=== PATIENT | male | born 1965 | race Caucasian/White ===

== ENCOUNTER 2017-04-09 21:13 | Emergency (ER) | payer OTHER ==
[~2017-04-09] VITALS: Ht 182.9 cm; Wt 86.0 kg
[2017-04-09 21:20] VITALS: TEMP 36.6; Ht 182.9 cm; Wt 86.0 kg
--- NOTE | 2017-04-09 21:46 | EMERGENCY ROOM VISIT NOTE ---
History Report prepared by Johanne: Palmira Gonzalez Under the Supervision of: Dr. Karyna Mcghee M.D. First contact with patient: 21:25 Chief Complaint: MENTAL HEALTH EVALUATION Stated Complaint: MENTAL HEALTH EVAL History of Present Illness The patient is a 52 year old male who presents to the Emergency Room for a mental health evaluation after a statement that he made today. The patient states that he has a opiate drug and alcohol addiction and had his last drink yesterday afternoon at 1pm. He reports that he was at [facility] for his first time at rehab. He explains that he was sitting around today with 9 other people at rehab and they were discussing the amount of times that they had been to rehab. The patient states that all of the other people had been to rehab multiple times and he was not happy that this might be something he would have to do again. He reports that he want's to go to rehab one time and move on and "live a happy life with my and grandson". The patient notes that he said to the group "If I have to do this more than once, I would rather be .". He states that one of the staff members asked how he would do it and he said that he would hang himself but he notes that he said this to get her to stop bothering him. He notes that he did not mean anything by the statements and wants to fix his addiction and not kill himself. The patient reports that he has never contemplated suicide has a "nice family and with too much to lose." He reports that he also has no psychiatric or medical history. Source of History: patient Onset: today Position: other (mental health) Quality: other (suicidal statements) Timing: other (episode) Note: Denies suicidal ideation. Review of Systems See HPI for pertinent positives & negatives. A total of 10 systems reviewed and were otherwise negative. Past Medical & Surgical Medical Problems: (1) No Known Active Medical Problems Family History No pertinent family history stated. Social History Smoking Status: Current Every Day Smoker Alcohol Use: heavy Drug Use: other (opiates) Marital Status: Housing Status: lives with family Occupation Status: employed Current/Historical Medications Scheduled Diazepam (Valium), 10 MG PO TID Diazepam (Valium), 10 MG PO BID Diazepam (Valium), 10 MG PO HS Diazepam (Valium), 5-10 MG PO PRN Folic Acid (Folvite), 1 MG PO DAILY Levetiracetam (Keppra), 500 MG PO TID Levetiracetam (Keppra), 500 MG PO BID Loperamide Hcl (Imodium), 4 MG PO DAILY/PRN/UD Loperamide Hcl (Imodium), 2 MG PO PRN/DAILY/UD Multivitamin (Multivitamin), 1 TAB PO DAILY Naloxone HCl (Naloxone HCl), 0.4 MG IM PRN Thiamine Hcl (Vitamin B-1), 100 MG PO DAILY Scheduled PRN Acetaminophen (Tylenol), 650 MG PO QID PRN for Pain or Fever Aluminum/Magnesium/Simeth (Maalox Max Susp), 30 ML PO TID PRN for GI Upset Clonidine Hcl (Catapres), 0.1 MG PO BID PRN for UNDECIDED Doxepin Hcl (Sinequan), 50 MG PO QPM PRN for Insomnia Hydroxyzine Pamoate (Vistaril), 50 MG PO TID PRN for Anxiety Ibuprofen (Motrin), 600 MG PO Q6H PRN for Pain Magnesium Hydroxide (Milk Of Magnesia), 30 ML PO DAILY PRN for Constipation Melatonin (Melatonin Maximum Strengt), 5 MG PO HS PRN for Insomnia Promethazine Hcl (Phenergan), 25 MG PO QID PRN for Nausea Allergies Coded Allergies: No Known Allergies (Unverified , 04/09/17) Physical Exam Vital Signs Date Time Temp Pulse Resp B/P (MAP) Pulse Ox O2 Delivery O2 Flow Rate FiO2 04/09/17 23:12 87 18 121/84 97 Room Air 04/09/17 21:20 36.6 81 18 119/80 96 Room Air Physical Exam Vital signs reviewed. General: Well-appearing male, in no significant distress. HEENT: No scleral icterus, PERRLA, neck supple. Atraumatic. Cardiovascular: Regular rate and rhythm, no extra sounds. Pulmonary: Clear to auscultation bilaterally, normal work of breathing. Abdomen: Soft, nontender, nondistended, positive bowel sounds. Musculoskeletal: Atraumatic, no peripheral edema. Neurologic: Patient awake alert and oriented x 3 Skin: Warm, dry, no rash Psych: Denies suicidal or homicidal ideation. Medical Decision & Procedures Laboratory Results 04/09/17 21:47 Red Blood Count 4.10, Mean Corpuscular Volume 93.9, Mean Corpuscular Hemoglobin 33.2, Mean Corpuscular Hemoglobin Concent 35.3, Mean Platelet Volume 9.1, Neutrophils (%) (Auto) 73.0, Lymphocytes (%) (Auto) 17.9, Monocytes (%) (Auto) 7.1, Eosinophils (%) (Auto) 1.6, Basophils (%) (Auto) 0.2, Neutrophils # (Auto) 7.14, Lymphocytes # (Auto) 1.75, Monocytes # (Auto) 0.69, Eosinophils # (Auto) 0.16, Basophils # (Auto) 0.02 04/09/17 21:47 Test 04/09/17 21:47 04/10/17 01:00 White Blood Count 9.78 K/uL (4.8-10.8) Red Blood Count 4.10 M/uL (4.7-6.1) Hemoglobin 13.6 g/dL (14.0-18.0) Hematocrit 38.5 % (42-52) Mean Corpuscular Volume 93.9 fL (80-100) Mean Corpuscular Hemoglobin 33.2 pg (25-34) Mean Corpuscular Hemoglobin Concent 35.3 g/dl (32-36) Platelet Count 176 K/uL (130-400) Mean Platelet Volume 9.1 fL (7.4-10.4) Neutrophils (%) (Auto) 73.0 % Lymphocytes (%) (Auto) 17.9 % Monocytes (%) (Auto) 7.1 % Eosinophils (%) (Auto) 1.6 % Basophils (%) (Auto) 0.2 % Neutrophils # (Auto) 7.14 K/uL (1.4-6.5) Lymphocytes # (Auto) 1.75 K/uL (1.2-3.4) Monocytes # (Auto) 0.69 K/uL (0.11-0.59) Eosinophils # (Auto) 0.16 K/uL (0-0.5) Basophils # (Auto) 0.02 K/uL (0-0.2) RDW Standard Deviation 44.1 fL (36.4-46.3) RDW Coefficient of Variation 12.9 % (11.5-14.5) Immature Granulocyte % (Auto) 0.2 % Immature Granulocyte # (Auto) 0.02 K/uL (0.00-0.02) Prothrombin Time 10.0 SECONDS (9.0-12.0) Prothromb Time International Ratio 0.9 (0.9-1.1) Activated Partial Thromboplast Time 25.7 SECONDS (21.0-31.0) Partial Thromboplastin Ratio 1.0 Anion Gap 6.0 mmol/L (3-11) Est Creatinine Clear Calc Drug Dose 83.7 ml/min Estimated GFR () 86.5 Estimated GFR (Non- 74.6 BUN/Creatinine Ratio 20.6 (10-20) Calcium Level 8.8 mg/dl (8.5-10.1) Total Bilirubin 0.2 mg/dl (0.2-1) Direct Bilirubin < 0.1 mg/dl (0-0.2) Aspartate Amino Transf (AST/SGOT) 21 U/L (15-37) Alanine Aminotransferase (ALT/SGPT) 25 U/L (12-78) Alkaline Phosphatase 83 U/L (45-117) Total Protein 6.1 gm/dl (6.4-8.2) Albumin 3.3 gm/dl (3.4-5.0) Salicylates Level < 1.7 mg/dl (2.8-20) Acetaminophen Level < 2 ug/ml (10-30) Ethyl Alcohol mg/dL < 3.0 mg/dl (0-3) Urine Color YELLOW Urine Appearance CLEAR (CLEAR) Urine pH 5.5 (4.5-7.5) Urine Specific [place] 1.024 (1.000-1.030) Urine Protein NEG (NEG) Urine Glucose (UA) NEG (NEG) Urine Ketones TRACE (NEG) Urine Occult Blood NEG (NEG) Urine Nitrite NEG (NEG) Urine Bilirubin NEG (NEG) Urine Urobilinogen NEG (NEG) Urine Leukocyte Esterase NEG (NEG) Urine Opiates Screen NEG (NEG) Urine Methadone, Qualitative NEG (NEG) Urine Barbiturates NEG (NEG) Urine Phencyclidine (PCP) Level NEG (NEG) Ur Amphetamine/Methamphetamine NEG (NEG) MDMA (Ecstasy) Screen NEG (NEG) Urine Benzodiazepines Screen POS (NEG) Urine Cocaine Metabolite NEG (NEG) Urine Marijuana (THC) NEG (NEG) Laboratory results per my review. Medications Administered Medications (Trade) Dose Ordered Sig/[place]apha Route Start Time Stop Time Status Last Admin Dose Admin Diazepam (Valium Tab) 10 mg NOW STAT PO 04/09/17 22:46 04/09/17 22:47 DC 04/09/17 22:53 10 MG ED Course 2124: Past medical records reviewed. The patient was evaluated in room A3. A complete history and physical examination was performed. 2246: Valium Tab 10mg PO. 0108: Upon reevaluation, the patient appeared to have improvement of his symptoms. I discussed findings with the patient. He verbalized agreement of the treatment plan. The patient was discharged home. Medical Decision Differential diagnosis: Etiologies such as mood disorder, infection, hypoglycemia, electrolyte abnormalities, cardiac sources, intracerebral event, toxicologic, neurologic, as well as others were entertained. This patient was evaluated and appeared to be in no distress. Patient was medically cleared. Patient was given 10 mg of oral valium for alcohol withdrawal. He was evaluated by mental health nurse case management who feels the patient is not acutely suicidal. He states he has no intention of committing suicide. He denies ever having these sorts of thoughts. He states he was speaking [id number]. Patient will return to [facility] rehabilitation facility in the morning. He was advised to contact the mental health counselors at the rehabilitation facility or to call can help if needed for urgent psychiatric issues. He will return to the ER for worsening of symptoms or any medical concerns. Medication Reconcilliation Current Medication List: was personally reviewed by me Blood Pressure Screening Patient's blood pressure: Normal blood pressure Blood pressure disposition: Did not require urgent referral Impression Primary Impression: Alcohol dependence Additional Impression: At low risk for suicide Scribe Attestation The scribe's documentation has been prepared under my direction and personally reviewed by me in its entirety. I confirm that the note above accurately reflects all work, treatment, procedures, and medical decision making performed by me. Departure Information Dispostion Home / Self-Care Forms HOME CARE DOCUMENTATION FORM, IMPORTANT VISIT INFORMATION Patient Instructions My [facility] Additional Instructions Diagnosis: Alcohol dependence, low risk suicide Drink plenty of fluids. Continue alcohol and drug rehab. Follow up with your doctor this week for reevaluation. Call [facility] for any urgent mental health needs. Return to the ED for worsening of symptoms or any medical concerns. Problem Qualifiers
[2017-04-09] MEDS ORDERED: MULT-506 PO (22:03)
[2017-04-09] MEDS ORDERED: THIA100T11 PO (22:04)
[2017-04-09] MEDS ORDERED: FOLI1TAB7 PO (22:05)
[2017-04-09] MEDS ORDERED: DIAZ10TA PO ×3 (22:06→22:09)
[2017-04-09] MEDS ORDERED: LEVE500T13 PO ×2 (22:12→22:14)
[2017-04-09] MEDS ORDERED: DIAZ-165 PO (22:16)
[2017-04-09 22:18] LABS: BASO % 0.2 %; BASO ABS # 0.02 K/uL (0-0.2); COMPLETE YES; EOS % 1.6 %; HEMATOCRIT 38.5 % (42-52); IG% 0.2 %; LYMPH % 17.9 %; LYMPH ABS # 1.75 K/uL (1.2-3.4); MEAN CELL VOLUME 93.9 fL (80-100); MEAN CORPUSCULAR HEMOGLOBIN 33.2 pg (25-34); MEAN CORPUSCULAR HGB CONC 35.3 g/dl (32-36); MEAN PLATELET VOLUME 9.1 fL (7.4-10.4); MONO % 7.1 %; PLATELET COUNT 176 K/uL (130-400); WHITE BLOOD COUNT 9.78 K/uL (4.8-10.8)
[2017-04-09] MEDS ORDERED: SNQ/50 PO (22:19)
[2017-04-09] MEDS ORDERED: MELATAB2 PO (22:20)
[2017-04-09] MEDS ORDERED: IMD/2 PO ×2 (22:22→22:23)
[2017-04-09] MEDS ORDERED: PROM25TA9 PO (22:28)
[2017-04-09] MEDS ORDERED: CLON0.1T12 PO (22:29)
[2017-04-09] MEDS ORDERED: HYDR50CA PO (22:32)
[2017-04-09] MEDS ORDERED: IBUP-1450 PO (22:33)
[2017-04-09] MEDS ORDERED: ACET-1311 PO (22:34)
[2017-04-09] MEDS ORDERED: ALUMSUS2 PO (22:36)
[2017-04-09] MEDS ORDERED: MOML PO (22:37)
[2017-04-09] MEDS ORDERED: [UNRECOGNIZED DRUG - OTHER] IM (22:38)
[2017-04-09 22:39] LABS: ALT/SGPT 25 U/L (12-78); BLOOD UREA NITROGEN 23 mg/dl (7-18); BUN/CREATININE RATIO 20.6 (10-20); CALCIUM 8.8 mg/dl (8.5-10.1); CARBON DIOXIDE 26 mmol/L (21-32); CHLORIDE 110 mmol/L (98-107); CREATININE 1.12 mg/dl (0.60-1.40); GLUCOSE 116 mg/dl (70-99); POTASSIUM 4.1 mmol/L (3.5-5.1); SODIUM 142 mmol/L (136-145)
[2017-04-09 22:40] LABS: ACETAMINOPHEN < 2 ug/ml (10-30)
[2017-04-09 22:42] LABS: ALKALINE PHOSPHATASE 83 U/L (45-117); AST/SGOT 21 U/L (15-37)
[2017-04-09 22:46] LABS: INR 0.9 (0.9-1.1)
[2017-04-09] MEDS ORDERED: DIAZEPAM 5MG TAB PO STA (22:46)
[2017-04-10 01:15] LABS: URINE APPEARANCE CLEAR (CLEAR); URINE BILIRUBIN NEG (NEG); URINE COLOR YELLOW; URINE NITRITE NEG (NEG); URINE PH 5.5 (4.5-7.5); URINE SPECIFIC GRAVITY 1.024 (1.000-1.030); UROBILINOGEN NEG (NEG); ZZUR CULT IF INDIC CLEAN CATCH NO
[2017-04-10 01:30] LABS: MANUAL MICROSCOPIC REQUIRED? NO; REVIEW REQ? NO
[2017-04-10 01:36] LABS: BENZODIAZEPINE, URINE POS (NEG); COCAINE,URINE NEG (NEG); PHENCYCLIDINE, URINE NEG (NEG)
[2017-04-10] MEDS ORDERED: DIAZEPAM 5MG TAB PO STA (02:59)
[2017-04-10] MEDS ORDERED: ONDANSETRON 4MG OD TAB PO ONE ×2 (03:00→07:00)
[2017-04-10] MEDS ORDERED: LORAZEPAM 1 MG TAB SL STA (06:49)
--- NOTE | 2017-04-10 07:16 | EMERGENCY ROOM VISIT NOTE ---
ED Visit Note First contact with patient: 06:49 I received this patient at change of shift signout from Dr. Rachel. The patient is a 52-year-old male who has a history of opiate as well as alcohol abuse. The patient was recently admitted on Sunday evening to [facility] for inpatient drug rehabilitation. The patient started to make suicidal ideations known while he was at [facility] and he was sent here for a mental health evaluation. The patient was medically cleared in the emergency department. He received multiple doses of benzodiazepines for possible withdrawal symptoms. He was medically cleared. He was evaluated by the mental health delegate in our emergency department as well as can help. Initially the patient was set to be discharged back to inpatient drug rehabilitation however at this time I was contacted by Lee Ann from [facility]. She told me that he was making suicidal ideations known while he was at [facility] specifically with a plan to hang himself from a tree on their property. At this time we will have the patient reevaluated by the mental health delegate and proceed from there. The patient was reevaluated by the delegate from [address] [place] [id number]. The case was also discussed with the on-call psychiatrist. The patient appears to be stable at this time for discharge back to the rehabilitation center.
--- NOTE | 2017-04-10 07:16 | EMERGENCY ROOM VISIT NOTE ---
ED Visit Note First contact with patient: 06:15 Pt signed out to me by Dr. Mcghee. Given Zofran and Valium overnight help with mild symptoms alcohol withdrawal. No evidence of fulminant DTs. No seizure-like activity. Patient awaiting transport to local rehabilitation facility. Patient signed out to Dr. Jane.
--- NOTE | 2017-04-10 09:25 | Psych Management Progress Note ---
Psychiatry Miscellaneous Date of Service: Apr 10, 2017. Reviewed case with the psychiatric liaison nurse, who was asked to see the patient for a mental health evaluation of reported suicidality. Reviewed the records, patient presented to the emergency room from [facility] (formerly [facility]3] after staff there overheard him make a suicidal statement about hanging himself from a tree. He has been in our emergency room for 12 hours, and has consistently denied suicidality during that time. He has no mental health history, history of suicide attempts, or suicidality in the past. He does have significant substance abuse issues, and just entered inpatient rehabilitation yesterday. He has been assessed by 3 different emergency room doctors, the emergency room psychiatric case liner, and now the psychiatric liaison nurse. He has given a consistent explanation of his statements each time, stating that he was frustrated with the attitude of some of his peers in rehab, who were talking about having to go back repeatedly to address their addiction issues, and made a comment that he would rather be than to have to repeatedly return to rehabilitation. He says his statement was taken out of context, and that what he meant was that he wanted to go to rehabilitation once , get better, and not return. He says that he has never contemplated suicide and was motivated to go to rehabilitation because he cares about his family. Agree with all previous assessments that the patient is at low risk for suicidal acutely, and does not require psychiatric admission. He should return to rehabilitation. Suggested that perhaps ER staff could contact the patient's , if he will agree and give permission, to get collateral information if this will help reassure rehabilitation staff that the patient has not been suicidal recently and to confirm his reports.
[2017-04-10] MEDS ORDERED: PROMETHAZINE HCL 25 MG TAB PO ONE (10:15)
[2017-04-10 11:38] VITALS: BP 135/87; PULSE 98; O2SAT 96
[2017-04-12 10:08] LABS: HYDROXYETHYLFLURAZEPAM CONF NEGATIVE NG/ML (CUTOFF=50); HYDROXYMIDAZOLAM NEGATIVE NG/ML (CUTOFF=50); HYDROXYTRIAZOLAM CONF NEGATIVE NG/ML (CUTOFF=50); TEMAZEPAM CONF 693 NG/ML (CUTOFF=50)
== END 2017-04-10 12:10 | disposition home or self-care (01) ==
LOC: C.EDA 21:16
DX: Z00.8 Encounter for other general examination (principal); F10.20 Alcohol dependence, uncomplicated; Z79.899 Other long term (current) drug therapy